=== PATIENT | female | born 1965 | race Caucasian/White ===

== ENCOUNTER 2023-05-20 12:04 | Inpatient (IN) | payer OTHER ==
[~2023-05-20] VITALS: Ht 172.7 cm; Wt 72.6 kg
[2023-05-20 12:15] VITALS: BP 83/53; PULSE 114; RESP 22; TEMP 99.2; O2SAT 95
[2023-05-20] MEDS ORDERED: NACL 0.9% 2,000 ML IV SCH (12:35)
[2023-05-20 12:50] LABS: HEMATOCRIT 39.3 % (36-48); HEMOGLOBIN 12.9 g/dL (12.0-16.0); MEAN CORPUSCULAR HEMOGLOBIN 27 pg (27-31); MEAN CORPUSCULAR HGB CONC 33 g/dL (33-37); MEAN CORPUSCULAR VOLUME 82.3 fL (80-94); PLATELET COUNT (AUTO) 202 K/uL (140-450); RED BLOOD CELL COUNT(AUTO) 4.77 MIL/uL (4.20-5.40); RED CELL DISTRIBUTION WIDTH 15.4 % (11.6-13.7)
[2023-05-20 13:04] LABS: WHITE BLOOD COUNT (AUTO) 30.6 K/uL (4.8-10.8)
[2023-05-20 13:05] LABS: LYMPHOCYTES % (MANUAL) 1 % (20-46); MONOCYTES % (MANUAL) 2 % (5-12)
[2023-05-20 13:07] LABS: INR 1.19 (0.8-1.2); PARTIAL THROMBOPLASTIN TIME 30.9 secs (22-35.6); PROTHROMBIN TIME 12.4 secs (10.8-13.4)
[2023-05-20 13:09] LABS: ALBUMIN 2.5 g/dL (3.4-5.0); ANION GAP 13.5 (8-16); CALCIUM 9.1 mg/dL (8.5-10.1); CARBON DIOXIDE 25.3 mmol/L (21-32); CREATININE 1.5 mg/dL (0.6-1.3); POTASSIUM 3.8 mmol/L (3.5-5.1); TOTAL BILIRUBIN 0.4 mg/dL (0.0-1.0); TOTAL PROTEIN, SERUM 6.7 g/dL (6.4-8.2)
[2023-05-20 13:15] LABS: LACTIC ACID 4.4 mmol/L (0.4-2.0)
[2023-05-20] MEDS ORDERED: VANCOMYCIN 1,000 MG in DEXTROSE 5% 250 ML IV ONE (13:25)
[2023-05-20] MEDS ORDERED: PIPERACILLIN/TAZOBACTAM 4.5 GM in DEXTROSE 5% 100 ML IV ONE (13:25)
[2023-05-20] MEDS ORDERED: PIPERACILLIN/TAZOBACTAM 4.5 GM VIAL IV ONE (14:04)
[2023-05-20 14:08] LABS: BILIRUBIN,URINE 1+ (NEGATIVE); BLOOD, URINE 2+ (NEGATIVE); COLOR,URINE YELLOW (YELLOW); LEUKOCYTE ESTERASE ,URINE 2+ (NEGATIVE); NITRITE, URINE NEGATIVE (NEGATIVE); PH,URINE 7.5 (5.0-9.0); PROTEIN,URINE 2+ (NEGATIVE); UGLUCOSE NEGATIVE (NEGATIVE); UROBILINOGEN,URINE 0.2 EU/dL (0.2 - 1)
[2023-05-20] MEDS ORDERED: VANCOMYCIN 1,000 MG VIAL ONE (14:14)
[2023-05-20 14:30] LABS: APPEARANCE,URINE CLOUDY (CLEAR)
[2023-05-20 14:31] LABS: BACTERIA,URINE 3+ /HPF (None Seen); RBC,URINE 20-50 /HPF (0-5); SQUAMOUS EPITHELIAL CELL,UR 0-3 (FEW) /LPF (0-3 (FEW)); URINE AMORPHOUS PHOSPHATES 2+ /HPF (None Seen)
[2023-05-20] MEDS ORDERED: CEFEPIME 2,000 MG in DEXTROSE 5% 100 ML IV ONE (14:40)
[2023-05-20] MEDS ORDERED: CEFEPIME 2,000 MG VIAL IV ONE (14:42)
[2023-05-20] MEDS ORDERED: HEPARIN PER PHARMACY MC PRN ×2 (17:15→18:45)
[2023-05-20] MEDS ORDERED: ACETAMINOPHEN EXTRA STRENGTH 500 MG TAB ONE (17:59)
[2023-05-20] MEDS ORDERED: ACETAMINOPHEN 325 MG TAB PO ONE (18:00)
[2023-05-20] MEDS ORDERED: PAX10 PO (18:19)
[2023-05-20] MEDS ORDERED: DOCU-299 PO (18:19)
[2023-05-20] MEDS ORDERED: ONDA-188 SL (18:19)
[2023-05-20] MEDS ORDERED: MAGNESIUM OXIDE 400 MG TAB PO PRN (18:40)
[2023-05-20] MEDS ORDERED: KCL 20 MEQ IN 100 mL PREMIX 200 ML IV PRN (18:40)
[2023-05-20] MEDS ORDERED: ACETAMINOPHEN 325 MG TAB PO PRN ×2 (18:40)
[2023-05-20] MEDS ORDERED: NACL 0.9% 1,000 ML IV SCH (18:40)
[2023-05-20] MEDS ORDERED: ONDANSETRON 4 MG/2 ML VIAL IVP PRN ×2 (18:40)
[2023-05-20] MEDS ORDERED: HYDROcodone/APAP 5/325 MG 1 TAB TAB PO PRN ×2 (18:40)
[2023-05-20] MEDS ORDERED: MAG SULF 2000 MG/WATER PREMIX 50 ML IV PRN (18:40)
[2023-05-20] MEDS ORDERED: MORPHINE SULFATE 4 MG/ML SYR IVP PRN ×2 (18:40)
[2023-05-20] MEDS ORDERED: hePARIN / DEXT 5% PREMIX 250 ML IV PRN (18:45)
[2023-05-20] MEDS: hePARIN / DEXT 5% PREMIX 250 ML IV SCH (19:18)
[2023-05-20] MEDS ORDERED: cefTRIAXone 1,000 MG VIAL ONE (19:45)
[2023-05-20] MEDS: NACL 0.9% 1,000 ML IV SCH (19:53)
[2023-05-20 21:20] VITALS: PULSE 100; PULSE 98; RESP 18; TEMP 96.5; O2SAT 98
[2023-05-20] MEDS ORDERED: PIPERACILLIN/TAZOBACTAM 2.25 GM VIAL IV ONE (22:42)
[2023-05-20] MEDS: PIPERACILLIN/TAZOBACTAM 2.25 GM in DEXTROSE 5% 50 ML IV SCH (22:45)
[2023-05-21] VITALS (9 sets, daily range): BP systolic 80–122; BP diastolic 45–69; PULSE 70–128; RESP 18; TEMP 96.4–98; O2SAT 89–100
[2023-05-21] MEDS ORDERED: PIPERACILLIN/TAZOBACTAM 2.25 GM VIAL IV ONE (05:13)
[2023-05-21] MEDS: PIPERACILLIN/TAZOBACTAM 2.25 GM in DEXTROSE 5% 50 ML IV SCH (05:16)
[2023-05-21] MEDS ORDERED: ENOXAPARIN 40 MG/0.4 ML SYR SUBQ SCH (09:00)
[2023-05-21 09:24] LABS: HEMATOCRIT 40.5 % (36-48); MEAN CORPUSCULAR HEMOGLOBIN 27 pg (27-31); MEAN CORPUSCULAR HGB CONC 32 g/dL (33-37); MEAN CORPUSCULAR VOLUME 84.3 fL (80-94); PLATELET COUNT (AUTO) 93 K/uL (140-450); WHITE BLOOD COUNT (AUTO) 3.6 K/uL (4.8-10.8)
[2023-05-21] MEDS ORDERED: POTASSIUM CHLORIDE 40 MEQ, LIDOCAINE 1% 25 MG in NACL 0.9% 250 ML IV ONE (09:40)
[2023-05-21 09:58] LABS: BASOPHILS % (MANUAL) 0 % (0-2); BLASTS, MANUAL % 0 % (0-0); EOSINOPHILS % (MANUAL) 0 % (0-4); LYMPHOCYTES % (MANUAL) 4 % (20-46); METAMYELOCYTES % 0 % (0-0); MONOCYTES % (MANUAL) 1 % (5-12); MYELOCYTES % 0 % (0-0); OTHER CELLS,MANUAL % 0 (0-0); PROMYELOCYTES % 0 % (0-0)
[2023-05-21] MEDS: NACL 0.9% 1,000 ML IV SCH ×2 (10:09→19:40)
[2023-05-21 10:24] LABS: ANION GAP 18.1 (8-16); CALCIUM 8.3 mg/dL (8.5-10.1); CARBON DIOXIDE 21.2 mmol/L (21-32); CREATININE 1.5 mg/dL (0.6-1.3); MAGNESIUM 1.5 mg/dL (1.8-2.4); POTASSIUM 5.3 mmol/L (3.5-5.1); TOTAL PROTEIN, SERUM 6.7 g/dL (6.4-8.2)
[2023-05-21] MEDS: hePARIN / DEXT 5% PREMIX 250 ML IV SCH (10:39)
[2023-05-21] MEDS ORDERED: FOAM DRESSING TP PRN (11:55)
[2023-05-21] MEDS: HYDRAGUARD CREAM TP SCH (13:00)
[2023-05-21] MEDS: FOAM DRESSING TP SCH (13:00)
[2023-05-21] MEDS: APIXABAN 2.5 MG TAB PO SCH ×2 (15:44→21:00)
[2023-05-21] MEDS ORDERED: NACL 0.9% 1,000 ML IV ONE (22:05)
[2023-05-22] VITALS (7 sets, daily range): BP systolic 81–114; BP diastolic 37–65; PULSE 64–90; RESP 18–19; TEMP 96.7–98.3; O2SAT 94–100
[2023-05-22] MEDS: HYDRAGUARD CREAM TP SCH ×2 (01:00→13:00)
[2023-05-22] MEDS: NACL 0.9% 1,000 ML IV SCH (08:10)
[2023-05-22] MEDS ORDERED: NACL 0.9% 500 ML IV SCH (08:25)
[2023-05-22] MEDS: PARoxetine 10 MG TAB PO SCH (08:52)
[2023-05-22] MEDS: APIXABAN 2.5 MG TAB PO SCH ×2 (08:56→21:00)
[2023-05-22 12:47] LABS: BASOPHILS % (AUTO) 0.1 % (0.0-2.0); EOSINOPHILS # (AUTO) 0.4 K/uL (0-0.4); EOSINOPHILS % (AUTO) 2.5 % (0.0-4.0); HEMATOCRIT 32.1 % (36-48); HEMOGLOBIN 10.3 g/dL (12.0-16.0); LYMPHOCYTES # (AUTO) 0.8 K/uL (2.5-16.5); LYMPHOCYTES % (AUTO) 5.3 % (20.5-51.1); MEAN CORPUSCULAR HEMOGLOBIN 27 pg (27-31); MEAN CORPUSCULAR HGB CONC 32 g/dL (33-37); MEAN CORPUSCULAR VOLUME 82.8 fL (80-94); MONOCYTES # (AUTO) 0.6 K/uL (0.8-1.0); MONOCYTES % (AUTO) 3.7 % (1.7-9.3); NEUTROPHILS # (AUTO) 13.9 K/uL (1.8-7.7); NEUTROPHILS % (AUTO) 88.4 % (42.2-75.2); PLATELET COUNT (AUTO) 76 K/uL (140-450); RED BLOOD CELL COUNT(AUTO) 3.88 MIL/uL (4.20-5.40); RED CELL DISTRIBUTION WIDTH 15.7 % (11.6-13.7); WHITE BLOOD COUNT (AUTO) 15.7 K/uL (4.8-10.8)
[2023-05-22] MEDS: FOAM DRESSING TP SCH (13:00)
[2023-05-22 13:21] LABS: ALBUMIN 1.7 g/dL (3.4-5.0); ANION GAP 10.4 (8-16); CALCIUM 7.7 mg/dL (8.5-10.1); CARBON DIOXIDE 27.9 mmol/L (21-32); CREATININE 0.9 mg/dL (0.6-1.3); MAGNESIUM 1.6 mg/dL (1.8-2.4); POTASSIUM 3.3 mmol/L (3.5-5.1); TOTAL BILIRUBIN 0.3 mg/dL (0.0-1.0); TOTAL PROTEIN, SERUM 5.4 g/dL (6.4-8.2)
[2023-05-22] MEDS: POTASSIUM CHLORIDE 10 MEQ TABER PO PRN (18:00)
[2023-05-23] VITALS: BP 142/79; PULSE 65; PULSE 71; RESP 18; TEMP 96.6; O2SAT 97
[2023-05-23] MEDS: HYDRAGUARD CREAM TP SCH ×2 (01:00→13:00)
[2023-05-23] MEDS: NACL 0.9% 1,000 ML IV SCH (02:20)
[2023-05-23 04:00] VITALS: BP 139/77; PULSE 61; PULSE 74; RESP 18; TEMP 96.8; O2SAT 98
[2023-05-23 06:47] LABS: BASOPHILS # (AUTO) 0.1 K/uL (0.00-0.22); BASOPHILS % (AUTO) 0.6 % (0.0-2.0); EOSINOPHILS # (AUTO) 0.1 K/uL (0-0.4); HEMATOCRIT 34.3 % (36-48); HEMOGLOBIN 11.1 g/dL (12.0-16.0); LYMPHOCYTES % (AUTO) 8.5 % (20.5-51.1); MEAN CORPUSCULAR HEMOGLOBIN 27 pg (27-31); MEAN CORPUSCULAR HGB CONC 32 g/dL (33-37); MEAN CORPUSCULAR VOLUME 83.1 fL (80-94); MONOCYTES # (AUTO) 0.6 K/uL (0.8-1.0); MONOCYTES % (AUTO) 4.9 % (1.7-9.3); NEUTROPHILS # (AUTO) 9.5 K/uL (1.8-7.7); PLATELET COUNT (AUTO) 73 K/uL (140-450); RED BLOOD CELL COUNT(AUTO) 4.13 MIL/uL (4.20-5.40); RED CELL DISTRIBUTION WIDTH 15.2 % (11.6-13.7); WHITE BLOOD COUNT (AUTO) 11.2 K/uL (4.8-10.8)
[2023-05-23 07:06] LABS: ALBUMIN 1.7 g/dL (3.4-5.0); CALCIUM 8.1 mg/dL (8.5-10.1); CARBON DIOXIDE 26.4 mmol/L (21-32); CREATININE 0.6 mg/dL (0.6-1.3); MAGNESIUM 1.7 mg/dL (1.8-2.4); POTASSIUM 3.4 mmol/L (3.5-5.1); TOTAL BILIRUBIN 0.2 mg/dL (0.0-1.0); TOTAL PROTEIN, SERUM 5.4 g/dL (6.4-8.2)
[2023-05-23 08:00] VITALS: BP 106/62; PULSE 63; PULSE 66; PULSE 80; RESP 18; RESP 8; TEMP 96.8; O2SAT 97
[2023-05-23] MEDS: APIXABAN 2.5 MG TAB PO SCH (09:00)
[2023-05-23] MEDS: PARoxetine 10 MG TAB PO SCH (09:35)
[2023-05-23] MEDS: POTASSIUM CHLORIDE 10 MEQ TABER PO PRN (09:36)
[2023-05-23 12:00] VITALS: BP 111/59; PULSE 64; PULSE 66; RESP 16; TEMP 97.3; O2SAT 95
[2023-05-23] MEDS: FOAM DRESSING TP SCH (13:00)
[2023-05-23] MEDS ORDERED: APIX2.5 PO (16:29)
[2023-05-23 17:20] VITALS: BP 111/59; PULSE 64; RESP 16; TEMP 97.3
[2023-05-24] MEDS ORDERED: FOAM DRESSING TP SCH (09:00)
== END 2023-05-23 19:15 | DRG 871 ==
LOC: MED 12:04 → MTU 18:43
PROVIDERS: ADMIT Hospitalist; ATTEND Hospitalist
DX: A41.9 Sepsis, unspecified organism (principal); G93.41 Metabolic encephalopathy; J96.01 Acute respiratory failure with hypoxia; N39.0 Urinary tract infection, site not specified; N17.9 Acute kidney failure, unspecified; I82.411 Acute embolism and thrombosis of right femoral vein; F03.90 Unspecified dementia, unspecified severity, without behavioral disturbance, psychotic disturbance, mood disturbance, and anxiety; F32.A Depression, unspecified; E88.09 Other disorders of plasma-protein metabolism, not elsewhere classified; R65.20 Severe sepsis without septic shock; E87.6 Hypokalemia; E83.42 Hypomagnesemia; E86.0 Dehydration; Z88.0 Allergy status to penicillin
CPT/HCPCS: 36415; 71045; 71275; 80053; 81001; 83605; 83735; 83880; 84484; 85025; 85379; 85610; 85730; 87040; 87081; 87086; 93005; 93970; 96361; 96365; 96375; 99291; J0692; J0696; J1644; J2543; J3370; J7060; Q0092; Q9967

== ENCOUNTER 2023-10-25 15:19 | Inpatient (IN) | payer OTHER ==
[~2023-10-25] VITALS: Ht 167.6 cm; Wt 108.9 kg
[~2023-10-25 15:19] MED LIST: APIX2.5 PO; DOCU-299 PO; ONDA-188 SL; PAX10 PO
[2023-10-25 15:27] VITALS: BP 122/81; PULSE 134; TEMP 103; O2SAT 95
[2023-10-25] MEDS ORDERED: ACETAMINOPHEN EXTRA STRENGTH 500 MG TAB PO ONE (15:55)
[2023-10-25 16:09] LABS: BASOPHILS % (AUTO) 0.1 % (0.0-2.0); EOSINOPHILS % (AUTO) 0.1 % (0.0-4.0); HEMATOCRIT 44.6 % (36-48); HEMOGLOBIN 14.8 g/dL (12.0-16.0); LYMPHOCYTES # (AUTO) 0.4 K/uL (2.5-16.5); LYMPHOCYTES % (AUTO) 2.4 % (20.5-51.1); MEAN CORPUSCULAR HEMOGLOBIN 28 pg (27-31); MEAN CORPUSCULAR HGB CONC 33 g/dL (33-37); MEAN CORPUSCULAR VOLUME 83.7 fL (80-94); MONOCYTES # (AUTO) 0.2 K/uL (0.8-1.0); NEUTROPHILS # (AUTO) 14.6 K/uL (1.8-7.7); NEUTROPHILS % (AUTO) 96.4 % (42.2-75.2); PLATELET COUNT (AUTO) 200 K/uL (140-450); RED BLOOD CELL COUNT(AUTO) 5.33 MIL/uL (4.20-5.40); RED CELL DISTRIBUTION WIDTH 15.3 % (11.6-13.7); WHITE BLOOD COUNT (AUTO) 15.1 K/uL (4.8-10.8)
[2023-10-25 16:17] VITALS: O2SAT 96
[2023-10-25] MEDS: NACL 0.9% 1,000 ML IV SCH ×2 (16:18→20:22)
[2023-10-25 16:33] LABS: INR 1.24 (0.8-1.2); PARTIAL THROMBOPLASTIN TIME 25.9 secs (22-35.6); PROTHROMBIN TIME 12.9 secs (10.8-13.4)
[2023-10-25 16:46] LABS: ALANINE AMINOTRANSFERASE 7 U/L (12-78); ALBUMIN 2.6 g/dL (3.4-5.0); ALKALINE PHOSPHATASE 106 U/L (50-136); ASPARTATE AMINOTRANSFERASE 7 U/L (15-37); BILIRUBIN,DIRECT 0.2 mg/dL (0.0-0.3); TOTAL BILIRUBIN 0.7 mg/dL (0.0-1.0); TOTAL PROTEIN, SERUM 8.9 g/dL (6.4-8.2)
[2023-10-25] MEDS: ACETAMINOPHEN 650 MG SUPP RC ONE (16:50)
[2023-10-25 18:06] LABS: ANION GAP 16.2 (8-16); CALCIUM 9.6 mg/dL (8.5-10.1); CARBON DIOXIDE 25.3 mmol/L (21-32); CREATININE 1.2 mg/dL (0.6-1.3); POTASSIUM 4.5 mmol/L (3.5-5.1)
[2023-10-25] MEDS: NACL 0.9% 1,000 ML IV ONE ×3 (18:08→21:14)
[2023-10-25 18:26] LABS: FLU A ANTIGEN negative (NEGATIVE); FLU B ANTIGEN NEGATIVE (NEGATIVE)
[2023-10-25] MEDS ORDERED: VANCOMYCIN 1,000 MG VIAL ONE (18:36)
[2023-10-25] MEDS ORDERED: cefTRIAXone 1,000 MG VIAL ONE (18:37)
[2023-10-25] MEDS ORDERED: PIPERACILLIN/TAZOBACTAM 3.375 GM VIAL IV ONE (18:37)
[2023-10-25 18:50] LABS: APPEARANCE,URINE CLEAR (CLEAR); BILIRUBIN,URINE 1+ (NEGATIVE); BLOOD, URINE 3+ (NEGATIVE); COLOR,URINE YELLOW (YELLOW); LEUKOCYTE ESTERASE ,URINE 2+ (NEGATIVE); NITRITE, URINE POSITIVE (NEGATIVE); PROTEIN,URINE 3+ (NEGATIVE); UGLUCOSE NEGATIVE (NEGATIVE); UROBILINOGEN,URINE 0.2 EU/dL (0.2 - 1)
[2023-10-25] MEDS: PIPERACILLIN/TAZOBACTAM 3.375 GM in DEXTROSE 5% 50 ML IV ONE (19:13)
[2023-10-25 19:38] LABS: BACTERIA,URINE >30 (MANY) /HPF (None Seen); MUCUS,URINE None Seen /LPF (None Seen); RBC,URINE 11-20 (MOD) /HPF (0-5); SQUAMOUS EPITHELIAL CELL,UR 4-10 (MOD) /LPF (0-3 (FEW)); TRICHOMONAS,URINE None Seen /HPF (None Seen); WBC,URINE 16-25 (MOD) /HPF (0-5); WHITE BLOOD CELL CASTS,URINE None Seen /LPF (None Seen); YEAST,URINE None Seen /HPF (None Seen)
[2023-10-25] MEDS ORDERED: HYDROcodone/APAP 5/325 MG 1 TAB TAB PO PRN (19:40)
[2023-10-25] MEDS ORDERED: ACETAMINOPHEN 325 MG TAB PO PRN (19:40)
[2023-10-25] MEDS ORDERED: LORazepam 1 MG TAB PO PRN (19:40)
[2023-10-25] MEDS ORDERED: ONDANSETRON 4 MG/2 ML VIAL IVP PRN (19:40)
[2023-10-25] MEDS ORDERED: ZOLPIDEM 5 MG TAB PO PRN (19:40)
[2023-10-25 19:43] LABS: CALCIUM OXALATE CRYSTALS,UR None Seen /HPF (None Seen); ICTOTEST NEGATIVE (NEGATIVE)
[2023-10-25 19:46] LABS: LACTIC ACID 3.5 mmol/L (0.4-2.0)
[2023-10-25 19:51] VITALS: O2SAT 98
[2023-10-25] MEDS: VANCOMYCIN 1,000 MG in DEXTROSE 5% 250 ML IV ONE (20:20)
[2023-10-25] MEDS ORDERED: VANCOMYCIN PER PHARMACY MC PRN (22:00)
[2023-10-25] MEDS: APIXABAN 2.5 MG TAB PO SCH (22:30)
[2023-10-25 22:37] LABS: CHOL/HDL RATIO 3.4 (1-4.5)
[2023-10-25 23:24] VITALS: PULSE 72; RESP 20; O2SAT 98
[2023-10-25 23:30] VITALS: BP 96/66; PULSE 72; RESP 20; TEMP 96; O2SAT 98
[2023-10-25 23:44] VITALS: PULSE 67
[2023-10-26] VITALS: BP 98/68; PULSE 69; PULSE 74; RESP 20; TEMP 96.4; O2SAT 98
[2023-10-26] MEDS: PIPERACILLIN/TAZOBACTAM 3.375 GM in DEXTROSE 5% 50 ML IV SCH (01:15)
[2023-10-26] MEDS: PIPERACILLIN/TAZOBACTAM 3.375 GM VIAL IV ONE ×3 (01:21→06:31)
[2023-10-26 04:00] VITALS: BP 106/52; PULSE 96; PULSE 98; RESP 18; TEMP 97; O2SAT 94
[2023-10-26 07:31] LABS: ALBUMIN 1.8 g/dL (3.4-5.0); ANION GAP 13.9 (8-16); CALCIUM 7.6 mg/dL (8.5-10.1); CARBON DIOXIDE 21.3 mmol/L (21-32); CREATININE 0.8 mg/dL (0.6-1.3); POTASSIUM 3.2 mmol/L (3.5-5.1); TOTAL BILIRUBIN 0.6 mg/dL (0.0-1.0); TOTAL PROTEIN, SERUM 6.2 g/dL (6.4-8.2)
[2023-10-26 08:00] VITALS: BP 84/46; PULSE 98; RESP 19; TEMP 98; O2SAT 96
[2023-10-26] MEDS: VANCOMYCIN 1.25GM PREMIX 250 ML IV SCH (09:06)
[2023-10-26 09:12] LABS: BASOPHILS % (AUTO) 0.1 % (0.0-2.0); HEMATOCRIT 32.3 % (36-48); HEMOGLOBIN 10.6 g/dL (12.0-16.0); LYMPHOCYTES # (AUTO) 0.3 K/uL (2.5-16.5); LYMPHOCYTES % (AUTO) 1.5 % (20.5-51.1); MEAN CORPUSCULAR HEMOGLOBIN 28 pg (27-31); MEAN CORPUSCULAR HGB CONC 33 g/dL (33-37); MEAN CORPUSCULAR VOLUME 83.7 fL (80-94); MONOCYTES # (AUTO) 0.5 K/uL (0.8-1.0); MONOCYTES % (AUTO) 2.5 % (1.7-9.3); NEUTROPHILS # (AUTO) 19.7 K/uL (1.8-7.7); NEUTROPHILS % (AUTO) 95.9 % (42.2-75.2); PLATELET COUNT (AUTO) 168 K/uL (140-450); RED BLOOD CELL COUNT(AUTO) 3.86 MIL/uL (4.20-5.40); RED CELL DISTRIBUTION WIDTH 15.1 % (11.6-13.7)
[2023-10-26 09:20] LABS: WHITE BLOOD COUNT (AUTO) 20.6 K/uL (4.8-10.8)
[2023-10-26] MEDS: DOCUSATE SODIUM 100 MG GELCAP PO SCH (09:41)
[2023-10-26] MEDS: PARoxetine 10 MG TAB PO SCH (09:42)
[2023-10-26 12:00] VITALS: BP 93/43; PULSE 82; PULSE 95; RESP 18; TEMP 98.6; O2SAT 100
[2023-10-26] MEDS: POTASSIUM CHLORIDE 40 MEQ, LIDOCAINE 1% 25 MG in NACL 0.9% 250 ML IV SCH (12:51)
[2023-10-26 16:00] VITALS: BP 102/51; PULSE 74; PULSE 77; RESP 18; TEMP 98.5; O2SAT 98
[2023-10-26] MEDS ORDERED: NACL 0.9% 250 ML IV SCH (16:00)
[2023-10-26] MEDS: MIDODRINE 5 MG TAB PO SCH (18:39)
[2023-10-26 20:00] VITALS: BP 110/62; PULSE 86; PULSE 88; RESP 18; TEMP 98.1; O2SAT 97
[2023-10-26] MEDS: APIXABAN 2.5 MG TAB PO SCH (21:17)
[2023-10-26] MEDS: MEROPENEM 1,000 MG in NACL 0.9% 50 ML IV SCH (23:26)
[2023-10-27] VITALS: BP 95/45; PULSE 76; PULSE 79; RESP 18; TEMP 96.8; O2SAT 97
[2023-10-27 04:00] VITALS: BP 125/54; PULSE 81; PULSE 83; RESP 20; TEMP 97; O2SAT 97
[2023-10-27 08:00] VITALS: BP 115/78; PULSE 84; RESP 20; TEMP 96.8; O2SAT 97
[2023-10-27 09:02] LABS: BASOPHILS % (AUTO) 0.1 % (0.0-2.0); EOSINOPHILS % (AUTO) 0.2 % (0.0-4.0); HEMATOCRIT 34.8 % (36-48); HEMOGLOBIN 11.4 g/dL (12.0-16.0); LYMPHOCYTES # (AUTO) 0.4 K/uL (2.5-16.5); LYMPHOCYTES % (AUTO) 3.8 % (20.5-51.1); MEAN CORPUSCULAR HEMOGLOBIN 27 pg (27-31); MEAN CORPUSCULAR HGB CONC 33 g/dL (33-37); MEAN CORPUSCULAR VOLUME 83.7 fL (80-94); MONOCYTES # (AUTO) 0.7 K/uL (0.8-1.0); MONOCYTES % (AUTO) 6.6 % (1.7-9.3); NEUTROPHILS % (AUTO) 89.3 % (42.2-75.2); PLATELET COUNT (AUTO) 149 K/uL (140-450); RED BLOOD CELL COUNT(AUTO) 4.16 MIL/uL (4.20-5.40); RED CELL DISTRIBUTION WIDTH 15.8 % (11.6-13.7); WHITE BLOOD COUNT (AUTO) 11.1 K/uL (4.8-10.8)
[2023-10-27 09:34] LABS: ALBUMIN 1.7 g/dL (3.4-5.0); CALCIUM 7.9 mg/dL (8.5-10.1); CARBON DIOXIDE 23.8 mmol/L (21-32); CREATININE 0.8 mg/dL (0.6-1.3); POTASSIUM 3.8 mmol/L (3.5-5.1); TOTAL BILIRUBIN 0.2 mg/dL (0.0-1.0); TOTAL PROTEIN, SERUM 6.6 g/dL (6.4-8.2)
[2023-10-27 12:00] VITALS: BP 121/73; PULSE 53; PULSE 57; RESP 18; TEMP 97.7; O2SAT 96
[2023-10-27 16:00] VITALS: BP 152/67; PULSE 81; RESP 20; TEMP 97.3; O2SAT 98
[2023-10-27 20:00] VITALS: BP 134/80; PULSE 69; PULSE 74; RESP 18; TEMP 97.6; O2SAT 96
[2023-10-28] VITALS: BP 144/71; PULSE 76; PULSE 82; RESP 18; TEMP 97.3; O2SAT 95
[2023-10-28 04:00] VITALS: BP 143/81; PULSE 84; PULSE 88; RESP 18; TEMP 97.5; O2SAT 95
[2023-10-28 08:00] VITALS: BP 141/78; PULSE 73; RESP 18; TEMP 97.1; O2SAT 98
[2023-10-28 10:34] LABS: BASOPHILS % (AUTO) 0.4 % (0.0-2.0); EOSINOPHILS % (AUTO) 0.4 % (0.0-4.0); HEMATOCRIT 35.8 % (36-48); HEMOGLOBIN 11.9 g/dL (12.0-16.0); LYMPHOCYTES # (AUTO) 0.7 K/uL (2.5-16.5); LYMPHOCYTES % (AUTO) 9.8 % (20.5-51.1); MEAN CORPUSCULAR HEMOGLOBIN 27 pg (27-31); MEAN CORPUSCULAR HGB CONC 33 g/dL (33-37); MEAN CORPUSCULAR VOLUME 82.4 fL (80-94); MONOCYTES # (AUTO) 0.7 K/uL (0.8-1.0); MONOCYTES % (AUTO) 9.1 % (1.7-9.3); NEUTROPHILS # (AUTO) 6.1 K/uL (1.8-7.7); NEUTROPHILS % (AUTO) 80.3 % (42.2-75.2); PLATELET COUNT (AUTO) 123 K/uL (140-450); RED BLOOD CELL COUNT(AUTO) 4.34 MIL/uL (4.20-5.40); RED CELL DISTRIBUTION WIDTH 15.3 % (11.6-13.7); WHITE BLOOD COUNT (AUTO) 7.6 K/uL (4.8-10.8)
[2023-10-28 11:02] LABS: ALBUMIN 1.6 g/dL (3.4-5.0); ANION GAP 11.5 (8-16); CALCIUM 7.8 mg/dL (8.5-10.1); CARBON DIOXIDE 26.1 mmol/L (21-32); CREATININE 0.6 mg/dL (0.6-1.3); POTASSIUM 3.6 mmol/L (3.5-5.1); TOTAL BILIRUBIN 0.2 mg/dL (0.0-1.0); TOTAL PROTEIN, SERUM 6.3 g/dL (6.4-8.2)
[2023-10-28] MEDS ORDERED: MIDODRINE 5 MG TAB PO PRN (11:50)
[2023-10-28 12:00] VITALS: BP 158/83; PULSE 66; PULSE 68; RESP 18; TEMP 97.5; O2SAT 98
[2023-10-28] MEDS ORDERED: ERTA1VIA2 IV (15:55)
[2023-10-28 16:00] VITALS: BP 145/76; PULSE 66; PULSE 67; RESP 18; TEMP 97.2; O2SAT 98
[2023-10-28 17:08] VITALS: BP 145/76; PULSE 67; TEMP 97.2
== END 2023-10-28 19:25 | DRG 871 ==
LOC: MED 15:19 → MTU 19:39
PROVIDERS: ADMIT Hospitalist; ATTEND Hospitalist
DX: A41.9 Sepsis, unspecified organism (principal); G93.41 Metabolic encephalopathy; N39.0 Urinary tract infection, site not specified; F84.0 Autistic disorder; R41.89 Other symptoms and signs involving cognitive functions and awareness; R65.20 Severe sepsis without septic shock; E66.01 Morbid (severe) obesity due to excess calories; J45.909 Unspecified asthma, uncomplicated; Z68.38 Body mass index [BMI] 38.0-38.9, adult; Z20.822 Contact with and (suspected) exposure to COVID-19; F41.9 Anxiety disorder, unspecified; F32.A Depression, unspecified; E87.6 Hypokalemia; Z86.711 Personal history of pulmonary embolism; Z86.718 Personal history of other venous thrombosis and embolism; Z88.0 Allergy status to penicillin
CPT/HCPCS: 36415; 71045; 73620; 80048; 80053; 80076; 80202; 81001; 83036; 83605; 84484; 85025; 85610; 85730; 87040; 87081; 87086; 96361; 96365; 96367; 99291; J0696; J2001; J2185; J2543; J3370; J3372; J3480; J7030; J7060